=== PATIENT | male | born 1965 | race Caucasian/White ===

== ENCOUNTER → 2016-12-23 | Outpatient (CLI) | payer BC ==
[~2016-12-23] MED LIST: CHOL4POW6 PO; DIPH-416 PO; LORA-741 PO
[2016-12-23 15:28] LABS: ALT/SGPT 41 U/L (12-78); AST/SGOT 23 U/L (15-37); BLOOD UREA NITROGEN 13 mg/dl (7-18); CALCIUM 8.7 mg/dl (8.5-10.1); CARBON DIOXIDE 29 mmol/L (21-32); CHLORIDE 106 mmol/L (98-107); CHOLESTEROL 186 mg/dl (0-200); CREATININE 0.99 mg/dl (0.60-1.40); GLUCOSE 88 mg/dl (70-99); POTASSIUM 3.8 mmol/L (3.5-5.1); SODIUM 140 mmol/L (136-145)
[2016-12-23 15:31] LABS: ALKALINE PHOSPHATASE 106 U/L (45-117); HDL CHOLESTEROL 61 mg/dl; TRIGLYCERIDES 94 mg/dl (0-150); VERY LOW DENSITY LIPOPROT CALC 19 mg/dl
[2016-12-24 06:11] LABS: ESTIMATED AVERAGE GLUCOSE 114 mg/dl; HA1C FLAG Normal (Normal)
== END | disposition home or self-care (01) ==
LOC: C.LABSPEC 14:35
PROVIDERS: ATTEND Internal Medicine
DX: R73.9 Hyperglycemia, unspecified (principal); E78.5 Hyperlipidemia, unspecified

== ENCOUNTER → 2017-02-11 | Outpatient (CLI) | payer BC ==
--- NOTE | 2017-02-11 16:00 | DIAGNOSTIC IMAGING REPORT ---
L KNEE 1 OR 2 VIEWS ROUTINE CLINICAL HISTORY: Left knee pain status post trauma COMPARISON: None. DISCUSSION: No acute fractures are visualized. Mild irregularity of the dorsal patellar cortex superiorly is likely old. Degenerative changes are present within the patellofemoral joint. There is no conventional radiographic evidence of significant joint effusion. IMPRESSION: 1. No acute fractures 2. Mild patellar irregularity, likely old Electronically signed by: Steven Kumari M.D. 02/11/2017 3:58 PM Dictated Date/Time: 02/11/2017 3:57 PM
== END | disposition home or self-care (01) ==
LOC: C.RAD 15:24
PROVIDERS: ATTEND Internal Medicine
DX: S89.92XA Unspecified injury of left lower leg, initial encounter (principal); M25.562 Pain in left knee; X58.XXXA Exposure to other specified factors, initial encounter